=== PATIENT | female | born 1940 | race Caucasian/White ===

== ENCOUNTER → 2017-03-07 | Outpatient (CLI) | payer MEDICARE ==
[~2017-03-07] MED LIST: BUPIVACAINE HCL 0.5% 10 ML VIAL As Ordered ONE; CONRAY-43 43% 50ML VIAL (Q9960) As Ordered ONE; methylPREDNISolone SUSP 40 MG/ML (DEPO-medrol) VIAL (J1030) As Ordered ONE
--- NOTE | 2017-03-07 21:41 | REP ---
LEFT FOOT ARTHROGRAM: The procedure was performed by MAR Bustamante under the direct supervision of Dr. Goodwin. The risks, benefits and complications if this procedure were discussed with the patient prior to examination. Informed consent was obtained both verbally and written. The left 2nd TMT joint was localized using fluoroscopic guidance. The skin was marked, prepped and draped in the usual sterile fashion. A procedural "time out" was performed to ensure that the correct patient, site and procedure were being performed. Local infiltrative anesthesia was achieved using 1% Xylocaine. Using fluoroscopic guidance a 25 gauge needle was advanced to the joint space. 0.5 mL of Conray 60 was injected to verify placement. A 3 mL solution containing 1 mL and 0.5% Marcaine and 2 mL of Depo-Medrol 40 mg were injected to verify placement. The needle was removed. The patient tolerated the procedure well and had no immediate complications. Fluoroscopy time was 23 seconds. Reviewed by MAR Kidd 03/08/2017 11:19 AEdited and Signed by Robert Goodwin MD 03/08/2017 03:09 P
== END | disposition home or self-care (01) ==
LOC: M RADPRO 10:41
PROVIDERS: ATTEND Podiatrist
DX: M25.579 Pain in unspecified ankle and joints of unspecified foot (principal); M19.079 Primary osteoarthritis, unspecified ankle and foot
CPT/HCPCS: 20606; 77002; J1030; Q9960

== ENCOUNTER → 2020-12-02 | Outpatient (CLI) | payer MEDICARE | LOC: M LABSMTC 09:36 | PROVIDERS: ATTEND Surgery | DX: C50.311 Malignant neoplasm of lower-inner quadrant of right female breast (principal); Z17.1 Estrogen receptor negative status [ER-] ==

== ENCOUNTER → 2021-01-21 | Outpatient (CLI) | payer MEDICARE ==
[~2021-01-21] MED LIST changes: +ASPI81CH33 PO; -BUPIVACAINE HCL 0.5% 10 ML VIAL As Ordered ONE; +CIDA500T2 PO; -CONRAY-43 43% 50ML VIAL (Q9960) As Ordered ONE; +GNP250TA9 PO; +LOSA100T50 PO; +MAGN250T7 PO; +NOXI1TAB PO; +OCUV1CAP4 PO; +OMEGCAP4 PO; +VITA100T59 PO; +ZINC1TAB2 PO; +[UNRECOGNIZED DRUG - CODE] PO; +[UNRECOGNIZED DRUG - CODE] XX; -methylPREDNISolone SUSP 40 MG/ML (DEPO-medrol) VIAL (J1030) As Ordered ONE
--- NOTE | 2021-01-21 16:05 | RADONC.CN ---
Radiation Oncology Hx/Consult Radiation Oncology Consult Date of Service: Jan 21, 2021 Pt Identifier Nisreen Aguillon is a 81 year old female with screening mammogram detected right breast cancer [id number] ER/LA/HER2- Grade 2. She is s/p lumpectomy on 11/18/20 (Dr. Ren) with a close lateral margin. She has been evaluated for and has decided against systemic therapy. She is seen today for consideration of adjuvant RT. Diagnosis/Treatment History Oncologic History 10/18/20 Mammogram/US with a right lower inner quadrant lesion 11/03/20 Biopsy showing IDC Grade 2 ER/LA/HER2- 11/18/20 Lumpectomy (Gela) [id number] <0.1 cm lateral margin Breast history: 1st @ 21 Menses @ 9 Post-menopausal @ 44 No OCP No HRT No IVF Interval History Feels well. Has some mild pain at the surgical site, associated with bending over. No other breast concerns today. She has good energy levels. Appetite is good and weight is stable. She is very active, lives in [place], lots of family close by. Has a grandchild's wedding to attend in the [place] area next month. Past Medical History: Arthritis HTN Past Surgical History: BL knee replacements Appendectomy Tonsillectomy Family History: Brother prostate cancer Uncle prostate cancer Paternal uncle pancreatic cancer Paternal cousin prostate canccer Social History: Never smoker Never drinker Allergies / Meds Allergies: Coded Allergies: Sulfa (Sulfonamide Antibiotics) (Verified Allergy, Unknown, rash, 01/21/21) Home Meds Reported Medications Lutein/Zeaxanthin (Ocuvite Lutein 25-5 mg Softgel) 1 Each Capsule, 1 CAP PO DAILY for 30 Days, #30 CAP 01/21/21 Adams-3/Dha/Epa/Fish Oil (Adams-3 Fish Oil 1,000 mg Sfgl) 1,000 Mg Capsule, 1 CAP PO BID for 30 Days, #60 CAP 01/21/21 Magnesium Oxide (Magnesium) 250 Mg Tablet, 250 MG PO DAILY for 30 Days, #30 TAB 01/21/21 Magnesium Oxide (Magnesium) 250 Mg Tablet, 250 MG PO DAILY for 30 Days, #30 TAB 01/21/21 Glucosamine/Chondr Eddy A Sod (Cidaflex Tablet) 1 Each Tablet, 1 TAB PO BID for 30 Days, #60 TAB 01/21/21 Selexipag (Uptravi) 200 Mcg Tablet, 200 MCG PO BID for 30 Days, #60 TAB 01/21/21 Zinc (Zinc) 50 Mg Tablet, 1 TAB PO DAILY for 30 Days, #30 TAB 01/21/21 Losartan Potassium (Losartan Potassium) 100 Mg Tablet, 100 MG PO DAILY for 30 Days, #30 TAB 01/21/21 Vitamin D3/Folic Acid (Noxifol-D3 2,500 Unit-1 mg Tab) 2,500 Unit Tablet, 1 TAB PO DAILY for 30 Days, #30 TAB 01/21/21 Ascorbic Acid (Vitamin C) 100 Mg Tablet, 100 MG PO DAILY for 30 Days, #30 TAB 01/21/21 Beta-Carotene (Beta Carotene) 1 Gm Beads, 10 % XX 01/21/21 Aspirin (Aspirin) 81 Mg Tab.chew, 81 MG PO DAILY for pain for 30 Days, #30 TAB 01/21/21 Review of Systems Constitutional: Denies: Chills, Fever, Night Sweats Eyes: Denies: Pain, Vision change HEENT: Denies: Head Aches, Dysphagia, Sore Throat Skin: Denies: Rash, Lesions, Bruising Pulmonary: Denies: Dyspnea, Cough Cardiovascular: Denies: Chest Pain, Palpitations, Edema Breast: Reports: Breast Pain or Tenderness; Denies: New Breast Lumps / Masses, Nipple Retraction, Nipple Discharge, Breast Skin Changes, Other Breast Complaints Gastrointestinal: Denies: Nausea, Vomiting, Abdominal Pain, Diarrhea Hematologic: Denies: Bruising, Petecchia, Enlarged Lymph Nodes Musculoskeletal: Denies: Neck pain, Back pain Psych: Reports: Mood Normal; Denies: Memory Issues, Thoughts of Self Harm Vital Signs Ht 65" Wt 186 BMI 30 T 97.6 P 84 RR 18 BP 165/87 O2 100% Pain 0 Fatigue 0 General Exam: Positive: Alert, Cooperative, No Acute Distress Eye Exam: Positive: PERRLA, EOMI ENT EXAM: Positive: Mucous membr. moist/pink, Pharynx Normal Neck Exam: Negative: Thyromegaly, Lymphadenopathy Chest Exam: Positive: Clear to auscultation, Normal air movement Heart Exam: Positive: Rate Normal, Regular Rhythm Breast Exam: Positive: Symmetric Bilaterally (Ptotic); Negative: Lumps or Masses (Mild tenderness at right inframammary incision/surgical site), Nipple Retraction, Skin Changes Extremity Exam: Negative: Edema Skin Exam: Positive: Nl turgor and temperature Neuro Exam: Positive: Normal Gait, Normal Speech, Cranial Nerves 3-12 NL Psych Exam: Positive: Mental status NL Diagnostic and Laboratory Diagnostic Review Radiologic images, relevant labs and pathology reports were personally reviewed and discussed with Ms. Aguillon. Assessment and Plan Impression Ms. Aguillon is a 81 year old female with a history of screening mammogram detected right breast cancer [id number] ER/LA/HER2- Grade 2. She is s/p lumpectomy on 11/18/20 (Dr. Ren) with a close lateral margin. She has been evaluated for and has decided against systemic therapy. She is seen today for consideration of adjuvant RT. Stage Right lower inner quadrant breast cancer [id number] ER/LA/HER2- Grade 2 stage IA Performance Status ECOG 0 Plan We had an extensive discussion with Ms. Aguillon regarding the diagnosis at hand and available therapeutic options. She is doing well since surgery only mild incisional pains, not bothersome at all. She is very healthy and functional. I discussed my recommendation for whole breast RT + boost given that she had a triple negative cancer and there was a close lateral margin. As she did not have any clinically involved axillary nodes and even though no SLNB was done, I would not deliberately treat the axilla. Part of level 1 will get incidental coverage with the whole breast tangents, I think this is sufficient. I will give 40 Gy in 15 fractions to the whole breast + 10 Gy in 5 fractions to the tumor bed. I will treat her supine. We discussed the logistics of receiving radiation therapy in detail including the need for a 1-time planning session. This can occur next week. We reviewed the side effects of treatment including fatigue, skin reaction, and late fibrosis. After discussing the risks, benefits and alternatives to radiation therapy, Ms. Aguillon was amenable to pursuing radiotherapy. All questions were answered to the patient's satisfaction. We instructed the patient that if there were any questions,concerns or changes in clinical status in the interim to contact us. Recommendations Right WBI 40 Gy in 15 fractions + 10 Gy in 5 fraction tumor bed boost Simulation next week Billing Statement Total time of [37] minutes was spent preparing for the visit [1], obtaining HPI [7], examining the patient [3], reviewing diagnostic tests [3], discussing management options [15], coordinating care [1], and writing this note [7]. DRAGAN BEDOLLA MD Jan 21, 2021 16:05
== END ==
LOC: M ONCR 14:34
PROVIDERS: ATTEND General Practice
DX: C50.911 Malignant neoplasm of unspecified site of right female breast (principal); Z79.82 Long term (current) use of aspirin; Z79.899 Other long term (current) drug therapy; Z80.3 Family history of malignant neoplasm of breast; Z80.8 Family history of malignant neoplasm of other organs or systems; Z88.2 Allergy status to sulfonamides; Z96.653 Presence of artificial knee joint, bilateral

== ENCOUNTER 2021-02-11 12:51 | Outpatient (RCR) | payer MEDICARE ==
[2021-02-15] MEDS ORDERED: VITAE40CA PO (12:23)
== END 2021-02-12 ==
LOC: M ONCR 12:51
PROVIDERS: ATTEND General Practice
DX: C50.311 Malignant neoplasm of lower-inner quadrant of right female breast (principal)

== ENCOUNTER 2021-03-09 15:41 | Outpatient (RCR) | payer MEDICARE ==
[~2021-03-09 15:41] MED LIST changes: +LOSA100T45 PO; -LOSA100T50 PO; +VITAE40CA PO
== END 2021-03-15 ==
LOC: M ONCR 15:41
PROVIDERS: ATTEND General Practice
DX: C50.311 Malignant neoplasm of lower-inner quadrant of right female breast (principal)

== ENCOUNTER 2021-05-04 09:45 | Outpatient (RCR) | payer MEDICARE ==
[~2021-05-04 09:45] MED LIST changes: -LOSA100T45 PO; +LOSA100T50 PO
== END 2021-05-15 ==
LOC: M PT 09:45
PROVIDERS: ATTEND General Practice
DX: I89.0 Lymphedema, not elsewhere classified (principal)

== ENCOUNTER → 2021-06-08 | Outpatient (CLI) | payer MEDICARE ==
[~2021-06-08] MED LIST changes: +LOSA100T45 PO; -LOSA100T50 PO
== END ==
LOC: M ONCR 14:50
PROVIDERS: ATTEND General Practice
DX: C50.311 Malignant neoplasm of lower-inner quadrant of right female breast (principal); Z92.3 Personal history of irradiation; Z88.2 Allergy status to sulfonamides; Z79.899 Other long term (current) drug therapy

== ENCOUNTER → 2021-11-23 | Outpatient (CLI) | payer MEDICARE | LOC: M ONCR 09:50 | PROVIDERS: ATTEND General Practice | DX: C50.311 Malignant neoplasm of lower-inner quadrant of right female breast (principal); Z92.3 Personal history of irradiation; N64.89 Other specified disorders of breast; Z85.3 Personal history of malignant neoplasm of breast; Z79.82 Long term (current) use of aspirin; Z79.899 Other long term (current) drug therapy ==

== ENCOUNTER → 2022-11-24 | Outpatient (CLI) | payer MEDICARE ==
[~2022-11-24] MED LIST changes: -LOSA100T45 PO; +LOSA100T46 PO
== END ==
LOC: M ONCR 10:00
PROVIDERS: ATTEND General Practice
DX: C50.311 Malignant neoplasm of lower-inner quadrant of right female breast (principal); L76.82 Other postprocedural complications of skin and subcutaneous tissue; Z79.82 Long term (current) use of aspirin; Z79.899 Other long term (current) drug therapy; Z88.1 Allergy status to other antibiotic agents; Z88.2 Allergy status to sulfonamides; Z92.3 Personal history of irradiation; Z98.890 Other specified postprocedural states

== ENCOUNTER → 2023-11-28 | Outpatient (CLI) | payer MEDICARE ==
[~2023-11-28] MED LIST changes: +DULO1CAP6 PO
== END ==
LOC: M ONCR 10:54
PROVIDERS: ATTEND General Practice
DX: C50.311 Malignant neoplasm of lower-inner quadrant of right female breast (principal); N60.31 Fibrosclerosis of right breast; Z71.2 Person consulting for explanation of examination or test findings; Z79.82 Long term (current) use of aspirin; Z79.899 Other long term (current) drug therapy; Z88.1 Allergy status to other antibiotic agents; Z88.2 Allergy status to sulfonamides; Z92.3 Personal history of irradiation

== ENCOUNTER → 2024-01-30 | Outpatient (REF) | payer MEDICARE | LOC: M SFHCDERM 17:39 | PROVIDERS: ATTEND Physician Assistant | DX: L57.0 Actinic keratosis (principal) ==